=== PATIENT | male | born 1960 | race Caucasian/White ===

== ENCOUNTER → 2016-10-15 | Outpatient (CLI) | payer OTHER ==
[~2016-10-15] MED LIST: AGM500T PO; BENZ-22 PO; CITA20TA12 PO; METH4TAB27 PO; OMEP20CA6 PO; PRED20TA PO
[2016-10-15 11:48] VITALS: BP 142/88
--- NOTE | 2016-10-15 11:48 | Urgent Care T Sheet Gen (E) ---
Intake General Temperature (Fahrenheit): 98.4 Pulse: 88 Blood Pressure Systolic: 142 Blood Pressure Diastolic: 88 (took DayQuil prior to visit) Respirations: 20 SPO2: 96 Description of Symptoms Patient presents with a month long history of chest congestion, cough and malaise. States he feels fine for a few days then feels bad again. Been taking DayQuil with temporary improvement. No fever. No sinus symptoms, all in his chest. History of Present Illness Allergies: Coded Allergies: No Known Drug Allergies (Unverified , 12/07/14) Home Meds Reported Medications Omeprazole (Prilosec)20 Mg Capsule.dr20 Mg PO DAILY 12/07/14 Citalopram Hydrobromide (Celexa)20 Mg [id number] Mg PO DAILY 12/07/14 Respiratory Constitutional Symptoms: No Fever, Malaise EENTM: No symptoms reported Respiratory: Cough Short of breathNo Wheezing Cardiovascular: No symptoms reported All Other Systems Reviewed Remaining Systems: All other systems reviewed with negative findings Past Gpeidqq-Ebknfh-Ceqmmi Hx Patient's Social History Alcohol Use: Denies Use Smoking Status: Never smoker Surgeries/Hospitalizations Hospitalization/Surgery Hx: HEMORRHOID BANDING, APPY, VASECTOMY Respiratory Respiratory History: None Cardiovascular Cardiovascular History: None Neuro/Muscular Neuro/Muscular History: Vertigo/fainting, Visual impairment, Other, see commnent Comment: DEPRESSION Genitouinary Genitourinary History: Nocturia Gastrointestinal GI/Endocrine History: Heartburn, GERD Diabetes Diabetes: No Integumentary Integumentary History: None Cancer History of Cancer?: No Physical Exam Physical Exam General Appearance: WD/WN No apparent distress Eyes, Ears, Nose, Throat Ex: TMs normal Pharyngeal erythema (cobblestone appearance) Other (nose is clear) Neck Exam: SuppleNo Lymphadenopathy Respiratory Exam: RhonchiNo Wheezes Cardiovascular Exam: Regular rate, rhythm Departure Urgent Care Impression Impression: Primary Impression: Bronchitis Additional Impression: Elevated blood pressure reading Departure Disposition: 01 HOME OR SELF-CARE Condition: Stable Referrals: SAKINA LUO MD (PCP) Additional Instructions: I have started the patient on Augmentin for infection and Medrol dose pack for inflammation. Rest. Fluids DC the DayQuil as that is most likely increasing his BP. May take Mucinex as needed. Return if no better No NSAIDs while on steroid Patient understands DC instructions. All questions were answered. Scripts Methylprednisolone (Medrol Dosepack)21 Tab/Pkt Tablet6 Tab PO DAILY Inflammation #1 PKT Ref 0 Take 6 tabs po on day 1 then decrease by 1 tab daily until packet is gone. Prov:JOEY WEI 10/15/16 Amoxicillin/Clavulanate Potassium (Augmentin 500mg/125mg)1 Each Tablet1 Each PO BID Infection #20 TAB Ref 0 Prov:JOEY WEI 10/15/16 End of report . JOEY WEI Oct 15, 2016 11:48
== END ==
LOC: MHUC 11:21
PROVIDERS: ATTEND Physician Assistant
DX: J40 Bronchitis, not specified as acute or chronic (principal); R03.0 Elevated blood-pressure reading, without diagnosis of hypertension
CPT/HCPCS: 99213

== ENCOUNTER → 2016-10-23 | Outpatient (CLI) | payer OTHER ==
[2016-10-23 11:24] VITALS: BP 144/92
== END ==
LOC: MHUC 10:55
PROVIDERS: ATTEND Physician Assistant
DX: R05 Cough (principal); R03.0 Elevated blood-pressure reading, without diagnosis of hypertension
CPT/HCPCS: 99213